=== PATIENT | female | born 1965 ===

== ENCOUNTER 2016-09-08 00:42 | Observation (INO) | payer BC ==
--- NOTE | 2016-09-08 01:13 | ED ---
General Adult HPI - General Chief complaint: Chest Pain Stated complaint: Chest Tightness Time Seen by Provider: 09/08/16 00:54 Source: patient, RN notes reviewed, old records reviewed Mode of arrival: wheelchair Limitations: no limitations - History of Present Illness Initial comments: This is a 51-year-old female here with chest pain. Patient is a strong family history of heart disease. No high blood pressure not cholesterol or diabetes remote smoking history. Patient currently with anterior chest pain heaviness and shortness of breath symptoms lasted for about 45 minutes. Patient does admit to increased stress in her life and also admits to increased episodes of chest pain. Again patient has strong family history. Patient currently without chest pain - Related Data Home Medications Medication Instructions Recorded Confirmed No Known Home Medications [No 09/08/16 09/08/16 Known Home Medications] Allergies Allergy/AdvReac Type Severity Reaction Status Date / Time No Known Allergies Allergy Verified 09/08/16 00:52 Review of Systems ROS Statement: Those systems with pertinent positive or pertinent negative responses have been documented in the HPI. ROS Other: All systems not noted in ROS Statement are negative. Past Medical History Past Medical History: No Reported History History of Any Multi-Drug Resistant Organisms: None Reported Additional Past Surgical History / Comment(s): exploratory laparotomy - removal of scar tissue, reconstruction of umbilicus. Past Psychological History: No Psychological Hx Reported Smoking Status: Never smoker Past Alcohol Use History: Occasional Past Drug Use History: None Reported General Exam Limitations: no limitations General appearance: alert, in no apparent distress, anxious Head exam: Present: atraumatic, normocephalic, normal inspection Eye exam: Present: normal appearance, PERRL, EOMI. Absent: scleral icterus, conjunctival injection, periorbital swelling ENT exam: Present: normal exam, mucous membranes moist Neck exam: Present: normal inspection. Absent: tenderness, meningismus, lymphadenopathy Respiratory exam: Present: normal lung sounds bilaterally. Absent: respiratory distress, wheezes, rales, rhonchi, stridor Cardiovascular Exam: Present: regular rate, normal rhythm, normal heart sounds. Absent: systolic murmur, diastolic murmur, rubs, gallop, clicks GI/Abdominal exam: Present: soft, normal bowel sounds. Absent: distended, tenderness, guarding, rebound, rigid Extremities exam: Present: normal inspection, full ROM, normal capillary refill. Absent: tenderness, pedal edema, joint swelling, calf tenderness Back exam: Present: normal inspection Neurological exam: Present: alert, oriented X3, CN II-XII intact Psychiatric exam: Present: normal affect, normal mood Skin exam: Present: warm, dry, intact, normal color. Absent: rash Course Vital Signs 09/08/16 09/08/16 09/08/16 00:48 02:05 03:07 Temperature 98.0 F 98.3 F Pulse Rate 88 84 86 Respiratory 18 16 16 Rate Blood Pressure 197/90 151/75 145/71 O2 Sat by Pulse 99 98 98 Oximetry - Reevaluation(s) Reevaluation #1: 09/08/16 03:21 Patient's pain at this time does remain improved EKG Findings - EKG Comments: EKG Findings:: EKG shows a sinus rhythm rate of 81, WV 136, QRS 84, QTC 434 Medical Decision Making - Medical Decision Making 51 female here for evaluation of chest pain, patient has strong family history of heart disease, typical chest pain including anterior having shortness of breath with diaphoresis. Patient be admitted for cardiac observation, patient initial EKG and troponin are negative, patient left serial troponins - Lab Data Result diagrams: 09/08/16 01:10 09/08/16 01:10 Lab Results 09/08/16 09/08/16 09/08/16 Range/Units 01:10 01:10 01:10 WBC 8.7 (3.8-10.6) k/uL RBC 4.83 (3.80-5.40) m/uL Hgb 14.7 (11.4-16.0) gm/dL Hct 42.7 (34.0-46.0) % MCV 88.5 (80.0-100.0) fL MCH 30.4 (25.0-35.0) pg MCHC 34.3 (31.0-37.0) g/dL RDW 12.5 (11.5-15.5) % Plt Count 215 (150-450) k/uL Neutrophils % 65 % Lymphocytes % 26 % Monocytes % 5 % Eosinophils % 2 % Basophils % 1 % Neutrophils # 5.7 (1.3-7.7) k/uL Lymphocytes # 2.3 (1.0-4.8) k/uL Monocytes # 0.4 (0-1.0) k/uL Eosinophils # 0.2 (0-0.7) k/uL Basophils # 0.1 (0-0.2) k/uL PT (9.0-12.0) sec INR (<1.1) APTT (22.0-30.0) sec D-Dimer (<0.60) mg/L FEU Sodium 142 (137-145) mmol/L Potassium 4.1 (3.5-5.1) mmol/L Chloride 104 (98-107) mmol/L Carbon Dioxide 24 (22-30) mmol/L Anion Gap 14 mmol/L BUN 18 H (7-17) mg/dL Creatinine 0.80 (0.52-1.04) mg/dL Est GFR (MDRD) Af Amer >60 (>60 ml/min/1.73 sqM) Est GFR (MDRD) Non-Af >60 (>60 ml/min/1.73 sqM) Glucose 127 H (74-99) mg/dL Calcium 9.5 (8.4-10.2) mg/dL Magnesium 2.0 (1.6-2.3) mg/dL Total Bilirubin 0.4 (0.2-1.3) mg/dL AST 33 (14-36) U/L ALT 42 (9-52) U/L Alkaline Phosphatase 73 (38-126) U/L Total Creatine Kinase 244 H (30-135) U/L CK-MB (CK-2) 2.1 (0.0-2.4) ng/mL CK-MB (CK-2) Rel Index 0.9 Troponin I <0.012 (0.000-0.034) ng/mL NT-Pro-B Natriuret Pep pg/mL Total Protein 7.5 (6.3-8.2) g/dL Albumin 4.7 (3.5-5.0) g/dL Lipase 119 (23-300) U/L 09/08/16 09/08/16 Range/Units 01:10 01:10 WBC (3.8-10.6) k/uL RBC (3.80-5.40) m/uL Hgb (11.4-16.0) gm/dL Hct (34.0-46.0) % MCV (80.0-100.0) fL MCH (25.0-35.0) pg MCHC (31.0-37.0) g/dL RDW (11.5-15.5) % Plt Count (150-450) k/uL Neutrophils % % Lymphocytes % % Monocytes % % Eosinophils % % Basophils % % Neutrophils # (1.3-7.7) k/uL Lymphocytes # (1.0-4.8) k/uL Monocytes # (0-1.0) k/uL Eosinophils # (0-0.7) k/uL Basophils # (0-0.2) k/uL PT 9.9 (9.0-12.0) sec INR 1.0 (<1.1) APTT 22.4 (22.0-30.0) sec D-Dimer <0.17 (<0.60) mg/L FEU Sodium (137-145) mmol/L Potassium (3.5-5.1) mmol/L Chloride (98-107) mmol/L Carbon Dioxide (22-30) mmol/L Anion Gap mmol/L BUN (7-17) mg/dL Creatinine (0.52-1.04) mg/dL Est GFR (MDRD) Af Amer (>60 ml/min/1.73 sqM) Est GFR (MDRD) Non-Af (>60 ml/min/1.73 sqM) Glucose (74-99) mg/dL Calcium (8.4-10.2) mg/dL Magnesium (1.6-2.3) mg/dL Total Bilirubin (0.2-1.3) mg/dL AST (14-36) U/L ALT (9-52) U/L Alkaline Phosphatase (38-126) U/L Total Creatine Kinase (30-135) U/L CK-MB (CK-2) (0.0-2.4) ng/mL CK-MB (CK-2) Rel Index Troponin I (0.000-0.034) ng/mL NT-Pro-B Natriuret Pep 43 pg/mL Total Protein (6.3-8.2) g/dL Albumin (3.5-5.0) g/dL Lipase (23-300) U/L - Radiology Data Radiology results: report reviewed (Chest x-ray two-view is negative for acute disease), image reviewed Critical Care Time Critical Care Time: Yes Total Critical Care Time: 31 Disposition Clinical Impression: Chest pain Disposition: ADMITTED IP TO THIS HOSP Condition: Undetermined Referrals: Gloria Lux MD [Primary Care Provider] - 1-2 days
[2016-09-08 01:42] LABS: Basophils # (A) 0.1 k/uL (0-0.2); Basophils % (A) 1 %; CH 30.8; CHCM 34.9; Eosinophils # (A) 0.2 k/uL (0-0.7); Eosinophils % (A) 2 %; HCT 42.7 % (34.0-46.0); HDW 2.45; HGB 14.7 gm/dL (11.4-16.0); Luc # (Auto) 0.15; Luc % (Auto) 2; Lymphocytes # (A) 2.3 k/uL (1.0-4.8); Lymphocytes % (A) 26 %; MCH 30.4 pg (25.0-35.0); MCHC 34.3 g/dL (31.0-37.0); MCV 88.5 fL (80.0-100.0); Mean Platelet Volume 7.5; Monocytes # (A) 0.4 k/uL (0-1.0); Monocytes % (A) 5 %; Neutrophils # (A) 5.7 k/uL (1.3-7.7); Neutrophils % (A) 65 %; RBC 4.83 m/uL (3.80-5.40); RDW 12.5 % (11.5-15.5); WBC 8.7 k/uL (3.8-10.6); WBC (Perox) 8.93
[2016-09-08 01:51] LABS: ALT 42 U/L (9-52); AST 33 U/L (14-36); Alkaline Phosphatase 73 U/L (38-126); Anion Gap 14 mmol/L; Blood Urea Nitrogen 18 mg/dL (7-17); Calcium 9.5 mg/dL (8.4-10.2); Carbon Dioxide 24 mmol/L (22-30); Chloride 104 mmol/L (98-107); Glucose 127 mg/dL (74-99); Non-African American GFR(MDRD) >60 (>60 ml/min/1.73 sqM); Potassium 4.1 mmol/L (3.5-5.1); Sodium 142 mmol/L (137-145); Total Bilirubin 0.4 mg/dL (0.2-1.3); Total Protein 7.5 g/dL (6.3-8.2)
[2016-09-08 02:03] LABS: Creatine Kinase 244 U/L (30-135)
[2016-09-08 02:16] LABS: Creatine Kinase MB 2.1 ng/mL (0.0-2.4); Troponin I <0.012 ng/mL (0.000-0.034)
[2016-09-08 02:24] LABS: Partial Thromboplastin Time 22.4 sec (22.0-30.0); Prothrombin Time 9.9 sec (9.0-12.0)
--- NOTE | 2016-09-08 02:43 | XR ---
EXAMINATION TYPE: XR chest 2V DATE OF EXAM: 09/08/2016 1:38 AM COMPARISON: None. HISTORY: Chest pain TECHNIQUE: Frontal and lateral views of the chest are obtained. FINDINGS: There is no focal air space opacity, pleural effusion, or pneumothorax seen. The cardiac silhouette size is within normal limits. The osseous structures are intact. IMPRESSION: No acute cardiopulmonary process.
[2016-09-08] MEDS ORDERED: NITROGLYCERIN SL TABS 0.4 MG TAB SUBLINGUAL PRN (03:19)
[2016-09-08] MEDS ORDERED: ASPIRIN 81 MG CHEW PO STA (03:19)
[2016-09-08] MEDS ORDERED: HEPARIN SODIUM,PORCINE 5,000 UNIT/ML 1 ML VIAL IV ONE (03:19)
[2016-09-08] MEDS ORDERED: HEPARIN SODIUM,PORCINE 5,000 UNIT/ML 1 ML VIAL IV PRN (03:19)
[2016-09-08] MEDS ORDERED: SODIUM CHLORIDE 0.9% 1,000 ML IV SCH (03:30)
[2016-09-08] MEDS ORDERED: HEPARIN SODIUM,PORCINE/D5W PMX 25,000 UNIT in DEXTROSE/WATER 1 500ML.BAG IV SCH (03:30)
[2016-09-08 05:57] VITALS: RESP 16
[2016-09-08] MEDS ORDERED: ATORVASTATIN 80 MG TAB PO SCH (09:00)
[2016-09-08 09:29] LABS: Creatine Kinase 176 U/L (30-135)
[2016-09-08 09:40] LABS: Creatine Kinase MB 1.5 ng/mL (0.0-2.4); Troponin I <0.012 ng/mL (0.000-0.034)
--- NOTE | 2016-09-08 10:20 | ECHOF ---
Referral Reason: MEASUREMENTS -------- HEIGHT: 154.9 cm WEIGHT: 74.8 kg BP: IVSd: 0.7 cm (0.6 - 1.1) LVIDd: 5.0 cm (3.9 - 5.3) LVPWd: 1.0 cm (0.6 - 1.1) IVSs: 1.7 cm LVIDs: 2.5 cm LVPWs: 1.7 cm Ao Diam: 2.6 cm (2.0 - 3.7) AV Cusp: 1.6 cm (1.5 - 2.6) LA Diam: 3.4 cm (2.7 - 3.8) MV EXCURSION: 13.666 mm (> 18.000) MV EF SLOPE: 98 mm/s (70 - 150) EPSS: 0.2 cm MV E Erlin: 0.90 m/s MV DecT: 224 ms MV A Erlin: 0.77 m/s MV E/A Ratio: 1.18 RAP: 5.00 mmHg RVSP: 15.40 mmHg FINDINGS -------- Sinus rhythm. This was a technically good study. Left ventricular wall thickness is normal. Overall left ventricular systolic function is normal with, an EF between 55 - 60 %. The right ventricle is normal in size and function. The left atrium is normal in size. The right atrium is normal in size. The aortic valve is trileaflet, and appears structurally normal. No aortic stenosis or regurgitation. The mitral valve leaflets are mildly thickened. Mild mitral regurgitation is present. Mild tricuspid regurgitation present. The right ventricular systolic pressure, as measured by Doppler, is 15.40mmHg. Pulmonic valve appears structurally normal. The aortic root size is normal. Normal inferior vena cava with normal inspiratory collapse consistent with estimated right atrial pressure of 5 mmHg. The pericardium is normal. CONCLUSIONS -------- 1. Sinus rhythm. 2. Mild mitral regurgitation is present. 3. Mild tricuspid regurgitation present. 4. The right ventricular systolic pressure, as measured by Doppler, is 15.40mmHg. 5. Pulmonic valve appears structurally normal. 6. The aortic root size is normal. 7. Normal inferior vena cava with normal inspiratory collapse consistent with estimated right atrial pressure of 5 mmHg. 8. The pericardium is normal. 9. This was a technically good study. 10. Left ventricular wall thickness is normal. 11. Overall left ventricular systolic function is normal with, an EF between 55 - 60 %. 12. The right ventricle is normal in size and function. 13. The left atrium is normal in size. 14. The right atrium is normal in size. 15. The aortic valve is trileaflet, and appears structurally normal. No aortic stenosis or regurgitation. 16. The mitral valve leaflets are mildly thickened. FOOD TESTER: Rossana Varner RDCS
--- NOTE | 2016-09-08 11:30 | P.CRDCN ---
History of Present Illness Consult date: 09/08/16 History of present illness: This is a 51-year-old female with a family history of ischemic heart disease but no history of hypertension diabetes or hypercholesterolemia who woke up last night with heaviness in the chest and also sharp pain on the left side. She was mildly short of breath and sweaty. The pain radiated to the back and also to the shoulder. Patient finally came to the emergency room. Apparently gradually improved on its own. Patient was given some oxygen and aspirin. Her EKGs did not reveal any acute changes. Her cardiac enzymes studies 2 are so far negative. She is having mild discomfort in the chest now. Appears to be atypical with negative workup so far. She is being scheduled for a stress echocardiogram. If that is negative patient could be discharged home. Review of Systems REVIEW OF SYSTEMS: CONSTITUTIONAL:. Patient is doing well. No complaints of fever or chills EYES: Denies diplopia, blurring of vision EARS, NOSE, MOUTH, THROAT: Denies headaches, denies sore throat. CARDIOVASCULAR: Denies chest pain, denies shortness of breath, denies palpitations RESPIRATORY: Denies shortness of breath, denies cough. GASTROINTESTINAL: Denies change in appetite, denies abdominal pain, denies diarrhea GENITOURINARY: Denies hematuria, denies infections. MUSKULOSKELETAL: Denies pain, denies swelling. Denies any cramps or claudication INTEGUMENTARY: Denies rash, denies eczema. NEUROLOGICAL: Denies focal weakness, or visual disturbance. Denies any dizziness or syncope PSYCHIATRIC: Denies anxiety, denies depression. HEMATOLOGIC/LYMPHATIC: Denies any bleeding, denies enlarged lymph nodes. Past Medical History Past Medical History: No Reported History History of Any Multi-Drug Resistant Organisms: None Reported Additional Past Surgical History / Comment(s): exploratory laparotomy - removal of scar tissue, reconstruction of umbilicus. Past Anesthesia/Blood Transfusion Reactions: No Reported Reaction Past Psychological History: No Psychological Hx Reported Additional Psychological History / Comment(s): Pt states she is under increased stress lately. Her [id number] recently and a couple of her friends have as well. She resides at home with her spouse, her mother and an adult son. She is independent. Smoking Status: Never smoker Past Alcohol Use History: Occasional Past Drug Use History: None Reported - Past Family History Father Family Medical History: Coronary Artery Disease (CAD), Diabetes Mellitus Additional Family Medical History / Comment(s): Father had a [place] at the age of 42yrs. He had CABG. He at the age of 64 yrs. Mother Family Medical History: AFIB Additional Family Medical History / Comment(s): Mother is 75yrs old. Medications and Allergies Home Medications Medication Instructions Recorded Confirmed Type Biotin 5 mg PO DAILY 09/08/16 09/08/16 History Cinnamon Bark [Cinnamon] 500 mg PO DAILY 09/08/16 09/08/16 History [place]-3 Fatty Acids/Fish Oil [Fish 1 cap PO DAILY 09/08/16 09/08/16 History Oil 1,000 mg Softgel] Allergies Allergy/AdvReac Type Severity Reaction Status Date / Time No Known Allergies Allergy Verified 09/08/16 07:31 Physical Exam Vitals: Vital Signs Temp Pulse Resp BP Pulse Ox 09/08/16 09:13 16 09/08/16 07:21 68 16 129/70 97 09/08/16 05:51 97.2 F L 87 16 136/81 97 09/08/16 04:05 98.3 F 73 18 133/79 98 Intake and Output 09/07/16 09/08/16 09/08/16 22:59 06:59 14:59 Other: # Voids 1 GENERAL EXAM: Patient is alert and oriented and doesn't appear to be in any acute distress HEENT: Normocephalic. Normal reaction of pupils, equal size, normal range of extraocular motion. No erythema or exudates in the throat. NECK: No masses, no nuchal rigidity. CHEST: No chest wall deformity. LUNGS: Equal air entry with no crackles or wheeze. HEART: S1 and S2 normal with no audible mumurs or gallops. Regular rhythm, femorals equal on both sides.. ABDOMEN: No hepatosplenomegaly, normal bowel sounds, no guarding or rigidity. SKIN: No rashes CENTRAL NERVOUS SYSTEM: No focal deficits. EXTREMITIES: No cyanosis, clubbing or edema. Results 09/08/16 01:10 09/08/16 01:10 Cardiac Enzymes 09/08/16 Range/Units 07:03 CK-MB (CK-2) 1.5 (0.0-2.4) ng/mL Troponin I <0.012 (0.000-0.034) ng/mL Coagulation 09/08/16 Range/Units 10:05 APTT 30.2 H (22.0-30.0) sec Current Medications Generic Name Dose Route Start Last Admin Trade Name Dianna PRN Reason Stop Dose Admin Aspirin 325 mg 09/09/16 09:00 Aspirin PO DAILY [facility] Atorvastatin Calcium 80 mg 09/08/16 09:00 Lipitor PO DAILY [facility] Heparin Sodium (Porcine) 0 unit 09/08/16 03:19 Heparin IV PER PROTOCOL PRN Low PTT Protocol Heparin Sodium/Dextrose 25,000 500 mls @ 17.96 mls/hr 09/08/16 03:30 04:04 unit/ IV Solution IV 12 units/kg/hr .Q24H DALE 17.96 mls/hr Protocol Administration 12 UNITS/KG/HR Sodium Chloride 1,000 mls @ 20 mls/hr 09/08/16 03:30 09/08/16 03:59 Saline 0.9% IV 20 mls/hr .Q24H DALE Administration Nitroglycerin 0.4 mg 09/08/16 03:19 Nitrostat SUBLINGUAL Q5M PRN Chest Pain Intake and Output 09/07/16 09/08/16 09/08/16 22:59 06:59 14:59 Other: # Voids 1 EKG Interpretations (text) Sinus rhythm without acute changes Assessment and Plan (1) Family history of ischemic heart disease Status: Acute (2) Chest pain Status: Acute Plan: Her pains appear to be atypical. Enzymes and EKGs are so far negative. Echo cardiogram showed good LV function without any segmental wall motion defects. Patient is being scheduled for a stress echocardiogram. If that is negative patient could be discharged home.
[2016-09-08 14:06] LABS: Creatine Kinase 143 U/L (30-135)
--- NOTE | 2016-09-08 14:14 | ECHOS ---
DATE OF SERVICE: 09/08/2016 AGE: 51Y SEX: F HT: 61" WT: 165 lbs. Protocol Shiva: Others: Stage: Dur. of Exercise: 9 minutes *Heart Rate Blood Pressure *Rest: 89 Rest: 143/70 * *Max. Achieved: 151 Maximum BP: 174/85 85% PMHR: 145 100% PMHR: 171 *METS: 9.9 INDICATIONS: Chest pain. MEDICATIONS: [place]-3, Cinnamon Bark, Bioth. Clinical information: 51-year-old female with chest pain, palpitations. Resting ECG shows sinus rhythm, rate of 89 beats per minute, ( ) 0.16, ( ), poor R wave progression in anteroseptal leads with ( ) limited treadmill test was performed. Patient exercised for total of 9 minutes, obtained a peak heart rate of 151 beats per minute which is approximately 88% predicted maximum heart rate without any chest pain, pressure or ST segment deviations indicative of ischemia or cardiac arrhythmias. Baseline EKG shows normal thickening and contractibility. Postexercise images show improved contractibility and thickening consistent with normal stress echocardiogram. Patient did not report any symptoms throughout the study. Patient has above average level of cardiopulmonary fitness as indicated by O2 ( ) and METs. Patient attained peak metabolic activity ( )to 10 METs.
[2016-09-08 14:20] LABS: Troponin I <0.012 ng/mL (0.000-0.034)
[2016-09-08 14:38] VITALS: BP 149/76; PULSE 85; TEMP 98.1
--- NOTE | 2016-09-08 19:32 | HP ---
DATE OF ADMISSION: 09/08/2016 CHIEF COMPLAINT: Chest pain. HISTORY OF PRESENT ILLNESS: Ms. Reich is a 51-year-old male with a known history of known family history of myocardial infarction in his father at age about 42. No history of hypertension, diabetes mellitus or hyperlipidemia, came to the hospital with complaints of chest tightness, mainly in the left retrosternal. Patient felt heaviness in the chest and also felt like pressure in the left side of the chest. Radiating to the back and to the shoulder. Patient came to the hospital ER and pain gradually improved after that. Patient was given oxygen and aspirin while in the ER and EKG showed no acute EKG changes. Cardiac enzymes have bene negative. Cardiology has seen the patient. Recommended stress echocardiogram, recommend stress test. The patient underwent stress test today. Otherwise, the patient currently chest pain free. No fever. No chills. No recent illnesses. No sick contacts at home. Apparently the patient had flulike symptoms lasted for a long time during June this year, since then patient did improve and currently no sick contacts at home. REVIEW OF SYSTEMS: CONSTITUTIONAL: No fever. No chills. No weakness or malaise. RESPIRATORY: No cough or sputum production. CARDIOVASCULAR: No chest pain or short of breath. ABDOMEN: No nausea, vomiting, abdominal pain. GENITOURINARY: Negative. ENDOCRINE: Negative. PSYCHIATRY: Negative. SKIN: Negative. All other 14 point review of systems negative except as above. Past medical history includes no hypertension or diabetes mellitus. PAST SURGICAL HISTORY: Exploratory laparotomy and removal of scar tissue, reconstruction of umbilicus. No psychosocial history. SOCIAL HISTORY: Patient never a smoker. Occasional alcohol use. Denied any drugs or IVDU. FAMILY HISTORY: Father had coronary artery disease and myocardial infarction at the age of 42. He had coronary artery bypass graft, he at age 64 years. Mother had afib. Home medication include: 1. Biotin. 2. Cinnamon bark. 3. [place]-3 fatty acids. ALLERGIES: No known drug allergies. PHYSICAL EXAMINATION: A 51 -year-old female lying in the bed. Alert and oriented times three. Appears to be in no apparent distress. VITALS: Blood pressure on admission 144/74, pulse 86, respirations 16, temperature afebrile, pulse ox 98% on room air. HEENT: Atraumatic, normocephalic. Neck is supple. No JVD. CVS: S1, S2 heard. No murmurs, no gallop. LUNGS: Bilateral air entry is present. No wheezing. No crackles. ABDOMEN: Soft, nontender, bowel sounds preset. FAMILY SUPPORT WORKER: Awake, alert, oriented x3. No focal neurologic deficits. Cranial nerves grossly intact. EXTREMITIES: No edema. Pulses palpable bilaterally. No clubbing or cyanosis. PSYCHIATRIC: Cooperative. LABORATORY DATA: WBC 8.7, hemoglobin 14.7, platelets 215 and INR 1.0. D-dimer 00.17 not elevated. Sodium 142, potassium 4.4, chloride 104, bicarb is 24. BUN 18, creatinine 0.8, CPK level 244, troponin x3 is negative. Lipase is 109. CHEST X-RAY: No acute cardiopulmonary process and EKG on admission showed normal sinus rhythm. IMPRESSION: 1. Atypical chest pain/angina. Rule out acute coronary syndrome. Serial EKGs and troponins negative so far. Continue the telemetry monitoring. Cardiology recommend stress echocardiogram. 2. A strong family history of coronary artery disease in her father, coronary artery disease, myocardial infarction at the age of 42 years. 3. A brother had a heart problems as well. DISCUSSION AND PLAN: 51 -year-old female admitted to the hospital with chest pain with strong family history. The patient admitted to the hospital to rule out acute coronary syndrome. Continue the telemetry monitoring. Cardiology recommend stress echocardiogram. Will follow up report and Further recommendations based on clinical course.
[2016-09-09] MEDS ORDERED: ASPIRIN 325 MG TAB PO SCH (09:00)
--- NOTE | 2016-09-09 18:44 | DS ---
DATE OF ADMISSION: 09/08/2016 DATE OF DISCHARGE: 09/08/2016 Cardiology consultation ( ) stress echocardiogram. DISCHARGE DIAGNOSES: 1. Atypical chest pain/angina, ruled out acute coronary syndrome. Stress echo negative. 2. Strong family history of coronary artery disease with myocardial infarction in her mother at age 42. 3. Brother had heart disease as well. HOSPITAL COURSE: Ms. Reich is a 51-year-old female without significant past medical history came to the hospital with a complaint of chest pressure, left side retrosternal. Presents like an AV sensation and patient was monitored in the hospital. Serial EKGs and troponins are negative. CK showed a normal sinus rhythm. Patient was seen by Cardiology and recommended a stress echocardiogram. Stress echo showed normal thickening and contractility. Post x-ray images showed improved contractility and thickening consistent with normal stress echocardiogram. The patient is currently chest pain free and pain lasted for 3 minutes. The patient otherwise stable to be discharge home. DISCHARGE PHYSICAL EXAMINATION: A 51-year-old female lying in the bed comfortably, awake, alert and oriented x3, appears in no apparent distress. VITALS: Blood pressure is 129/70. Pulse 68, respirations 16, temperature afebrile, pulse ox 97% on room air. LABORATORY DATA: Reviewed. Discharge physical examination done. Discharge medications include: 1. Biotin 5 mg p.o. daily. 2. Cinnamon bark 500 mg p.o. daily. 3. [place]-3 fatty acids 1 capsule p.o. daily. Patient will be discharged in stable condition. Activity as tolerated. Heart healthy diet. Follow with Dr. Gloria Lux. Home with self care.
== END 2016-09-08 17:30 | disposition home or self-care (01) ==
LOC: EC 00:42 → 3OBS 03:21
PROVIDERS: ADMIT Hospitalist; ATTEND Hospitalist
DX: I20.9 Angina pectoris, unspecified (principal); Z63.9 Problem related to primary support group, unspecified; Z82.49 Family history of ischemic heart disease and other diseases of the circulatory system; Z83.3 Family history of diabetes mellitus
CPT/HCPCS: 99291; 96365; 96366 ×7; 96376; 36415; 93005; 93017; 93306; 93350; 85379; 83880; 80053; 82550; 82553; 83690; 83735; 84484; 85025; 85610; 85730; 71020; G0378; J1644 ×2

== ENCOUNTER → 2017-09-01 | Outpatient (CLI) | payer BC ==
--- NOTE | 2017-09-03 10:49 | MM ---
Reason for exam: screening (asymptomatic). Last mammogram was performed 1 year and 2 months ago. History: Family history of breast cancer in sister at age 50. Cancelled Right Mammotome of the right breast, February 28, 2010. Took hormonal contraceptives for 2 years beginning at age 17. Physical Findings: A clinical breast exam by your physician is recommended on an annual basis and results should be correlated with mammographic findings. MG Screening Mammo w CAD Bilateral CC and MLO view(s) were taken. Prior study comparison: June 17, 2016, bilateral MG screening mammo w CAD. June 19, 2015, right breast MG 3d work up w/cad RT. The breast tissue is heterogeneously dense. This may lower the sensitivity of mammography. No significant changes when compared with prior studies. ASSESSMENT: Benign, BI-RAD 2 RECOMMENDATION: Routine screening mammogram of both breasts in 1 year.
== END | disposition home or self-care (01) ==
LOC: RADMAMWWP 09:28
PROVIDERS: ATTEND Internal Medicine
DX: Z12.31 Encounter for screening mammogram for malignant neoplasm of breast (principal)

== ENCOUNTER → 2018-10-10 | Outpatient (CLI) | payer BC ==
--- NOTE | 2018-10-12 12:02 | MM ---
Reason for exam: screening (asymptomatic). Last mammogram was performed 1 year and 1 month ago. History: Family history of breast cancer in sister at age 50. Cancelled Right Mammotome of the right breast, February 28, 2010. Took hormonal contraceptives for 2 years beginning at age 17. Physical Findings: A clinical breast exam by your physician is recommended on an annual basis and results should be correlated with mammographic findings. MG 3D Screening Mammo W/Cad Bilateral CC and MLO view(s) were taken. Prior study comparison: September 01, 2017, bilateral MG screening mammo w CAD. June 17, 2016, bilateral MG screening mammo w CAD. The breast tissue is extremely dense which could obscure a lesion on mammography. No significant changes when compared with prior studies. ASSESSMENT: Benign, BI-RAD 2 RECOMMENDATION: Routine screening mammogram of both breasts in 1 year.
== END ==
LOC: RADMAMWWP 13:46
PROVIDERS: ATTEND Internal Medicine
DX: Z12.31 Encounter for screening mammogram for malignant neoplasm of breast (principal)
CPT/HCPCS: 77063; 77067

== ENCOUNTER → 2020-10-11 | Outpatient (CLI) | payer BC ==
--- NOTE | 2020-10-11 09:40 | US ---
EXAMINATION TYPE: US abdomen complete DATE OF EXAM: 10/11/2020 COMPARISON: US 2015 CLINICAL HISTORY: R74.8 ABN ALT AND AST. EXAM MEASUREMENTS: Liver Length: 14.3 cm Gallbladder Wall: 0.3 cm CBD: 0.4 cm Spleen: 11.9 cm Right Kidney: 10.8 x 4.2 x 4.8 cm Left Kidney: 12.3 x 4.8 x 5.3 cm Pancreas: visualized portions wnl Liver: wnl Gallbladder: No stones seen Evidence for sonographic Sy's sign: No CBD: wnl Spleen: wnl Right Kidney: No hydronephrosis or masses seen Left Kidney: No hydronephrosis or masses seen Upper IVC: wnl Abd Aorta: wnl The liver is homogenous. The intrahepatic portion of the IVC and proximal abdominal aorta are within normal limits. There is no evidence of cholelithiasis. Common bile duct is unremarkable. The visu alized portions of the pancreas are homogenous. The spleen is unremarkable. Kidneys are symmetric a nd free of hydronephrosis. No renal lesions are seen. IMPRESSION: No distinct abnormality seen.
== END | disposition home or self-care (01) ==
LOC: RADUSWWP 08:46
PROVIDERS: ATTEND Internal Medicine
DX: R74.01 Elevation of levels of liver transaminase levels (principal)
CPT/HCPCS: 76700

== ENCOUNTER → 2020-10-16 | Outpatient (CLI) | payer BC ==
--- NOTE | 2020-10-18 11:26 | MM ---
Reason for exam: screening (asymptomatic). Last mammogram was performed 2 years ago. History: Patient is postmenopausal. Family history of breast cancer in sister at age 50. Cancelled Right Mammotome of the right breast, February 28, 2010. Took hormonal contraceptives for 2 years beginning at age 17. Physical Findings: A clinical breast exam by your physician is recommended on an annual basis and results should be correlated with mammographic findings. MG 3D Screening Mammo W/Cad Bilateral CC and MLO view(s) were taken. Prior study comparison: October 10, 2018, bilateral MG 3d screening mammo w/cad. September 01, 2017, bilateral MG screening mammo w CAD. The breast tissue is heterogeneously dense. This may lower the sensitivity of mammography. No significant changes when compared with prior studies. ASSESSMENT: Benign, BI-RAD 2 RECOMMENDATION: Routine screening mammogram of both breasts in 1 year.
== END | disposition home or self-care (01) ==
LOC: RADMAMWWP 13:30
PROVIDERS: ATTEND Internal Medicine
DX: Z12.31 Encounter for screening mammogram for malignant neoplasm of breast (principal)
CPT/HCPCS: 77063; 77067

== ENCOUNTER → 2021-11-27 | Outpatient (CLI) | payer BC ==
--- NOTE | 2021-11-28 12:43 | MM ---
Reason for exam: screening (asymptomatic). Last mammogram was performed 1 year and 1 month ago. History: Patient is postmenopausal. Family history of breast cancer in sister at age 50. Cancelled Right Mammotome of the right breast, February 28, 2010. Took hormonal contraceptives for 2 years beginning at age 17. Physical Findings: A clinical breast exam by your physician is recommended on an annual basis and results should be correlated with mammographic findings. MG 3D Screening Mammo W/Cad Bilateral CC and MLO view(s) were taken. XCCL view(s) were taken of the right breast. Prior study comparison: October 16, 2020, bilateral MG 3d screening mammo w/cad. October 10, 2018, bilateral MG 3d screening mammo w/cad. The breast tissue is extremely dense which could obscure a lesion on mammography. Finding: There is a 6 mm oval mass in the inner quadrant, middle position of the right breast. Asymmetric breast tissue in the right axilla, stable. There is no discrete abnormality. ASSESSMENT: Incomplete: need additional imaging evaluation, BI-RAD 0 RECOMMENDATION: Special view mammogram of the right breast. If lesion persists on supplemental views, image directed ultrasound is recommended. [facility] will attempt to contact patient to return for supplemental views and ultrasound if indicated.
== END | disposition home or self-care (01) ==
LOC: RADMAMWWP 09:14
PROVIDERS: ATTEND Internal Medicine
DX: Z12.31 Encounter for screening mammogram for malignant neoplasm of breast (principal); Z78.0 Asymptomatic menopausal state; Z80.3 Family history of malignant neoplasm of breast
CPT/HCPCS: 77063; 77067

== ENCOUNTER → 2022-08-06 | Outpatient (CLI) | payer BC ==
--- NOTE | 2022-08-06 13:40 | MM ---
Reason for Exam: Follow-up at short interval from prior study. Last screening mammogram was performed 9 month(s) ago. Patient History: Menarche at age 15. First Full-Term at age 23. Postmenopausal. Patient has history of breast feeding. Hormonal Contraceptives for 2 years from age 17 until age 19. 02/28/2010, Cancelled Right Mammotome on the right side. Sister had breast cancer, age 50. Risk Values: Diamond 5 year model risk: 2.3%. NCI Lifetime model risk: 15.1%. Prior Study Comparison: 09/01/2010 Right Diagnostic Ultrasound, [facility]. 03/24/2011 Bilateral Diagnostic Mammogram, [facility]. 04/04/2012 Bilateral Diagnostic Mammogram, [facility]. 04/27/2013 Bilateral Screening Mammogram, [facility]. 05/28/2014 Bilateral Screening Mammogram, [facility]. 06/05/2015 Bilateral Screening Mammogram, [facility]. 06/19/2015 Right Diagnostic Mammogram, [facility]. 06/17/2016 Bilateral Screening Mammogram, [facility]. 09/01/2017 Bilateral Screening Mammogram, [facility]. 10/10/2018 Bilateral Screening Mammogram, [facility]. 10/16/2020 Bilateral Screening Mammogram, [facility]. 11/27/2021 Bilateral Screening Mammogram, [facility]. 12/11/2021 Right Diagnostic Mammogram, [facility]. Tissue Density: Right: The breast tissue is heterogeneously dense. This may lower the sensitivity of mammography. Findings: Analyzed By CAD. The previous medial area of asymmetric density does not persist. A couple benign punctate calcifications medial right breast are redemonstrated. No significant change from prior exams. Overall Assessment: Benign, BI-RAD 2 Management: Screening Mammogram of both breasts in 6 months. 1. Patient should continue monthly self breast exams. 2. A clinical breast exam by your physician is recommended on an annual basis. 3. This exam should not preclude additional follow-up of suspicious palpable abnormalities. Results were given to the patient verbally at the time of exam. Electronically signed and approved by: Kendrick Minaya M.D. Radiologist
== END | disposition home or self-care (01) ==
LOC: RADMAMWWP 12:50
PROVIDERS: ATTEND Internal Medicine
DX: R92.8 Other abnormal and inconclusive findings on diagnostic imaging of breast (principal); Z78.0 Asymptomatic menopausal state; Z80.3 Family history of malignant neoplasm of breast
CPT/HCPCS: 77061; 77065

== ENCOUNTER → 2023-02-05 | Outpatient (CLI) | payer BC ==
--- NOTE | 2023-02-08 10:11 | MM ---
Reason for Exam: Screening (asymptomatic). Last mammogram was performed 1 year(s) and 3 month(s) ago. Patient History: Menarche at age 15. First Full-Term at age 23. Postmenopausal. Patient has history of breast feeding. Hormonal Contraceptives for 2 years from age 17 until age 19. 02/28/2010, Cancelled Right Mammotome on the right side. Sister had breast cancer, age 50. Risk Values: Diamond 5 year model risk: 2.3%. NCI Lifetime model risk: 15.1%. Prior Study Comparison: 11/27/2021 Bilateral Screening Mammogram, [facility]. 12/11/2021 Right Diagnostic Mammogram, [facility]. 08/06/2022 Right MG 3D diag mammo w/cad RT, [facility]. Tissue Density: The breast tissue is heterogeneously dense. This may lower the sensitivity of mammography. Findings: Analyzed By CAD. Benign-appearing bilateral axillary lymph nodes are redemonstrated. There is no suspicious new group of microcalcifications or new suspicious mass in either breast. Overall Assessment: Benign, BI-RAD 2 Management: Screening Mammogram of both breasts in 1 year. . Patient should continue monthly self-breast exams. A clinical breast exam by your physician is recommended on an annual basis. This exam should not preclude additional follow-up of suspicious palpable abnormalities. Note on Diamond scores and lifetime risk: 1. A Diamond score greater than 3% is considered moderate risk. If this is the case, consider specialist referral to assess eligibility for a risk reducing agent. 2. If overall lifetime risk for the development of breast cancer is 20% or higher, the patient may qualify for future screening with alternating mammogram and breast MRI. Electronically signed and approved by: Anil Felix M.D.
== END | disposition home or self-care (01) ==
LOC: RADMAMWWP 09:41
PROVIDERS: ATTEND Internal Medicine
DX: Z12.31 Encounter for screening mammogram for malignant neoplasm of breast (principal); Z78.0 Asymptomatic menopausal state; Z80.3 Family history of malignant neoplasm of breast
CPT/HCPCS: 77063; 77067

== ENCOUNTER → 2024-02-22 | Outpatient (CLI) | payer BC ==
--- NOTE | 2024-02-25 10:53 | MM ---
Reason for Exam: Screening (asymptomatic). Last screening mammogram was performed 12 month(s) ago. Patient History: Menarche at age 15. First Full-Term at age 23. Postmenopausal. Patient has history of breast feeding. Hormonal Contraceptives for 2 years from age 17 until age 19. 02/28/2010, Cancelled Right Mammotome on the right side. Sister had breast cancer, age 50. Risk Values: Diamond 5 year model risk: 2.4%. NCI Lifetime model risk: 14.8%. Prior Study Comparison: 10/10/2018 Bilateral Screening Mammogram, [facility]. 10/16/2020 Bilateral Screening Mammogram, [facility]. 11/27/2021 Bilateral Screening Mammogram, [facility]. 12/11/2021 Right Diagnostic Mammogram, [facility]. 08/06/2022 Right MG 3D diag mammo w/cad RT, [facility]. 02/05/2023 Bilateral MG 3D screening mammo w/cad, [facility]. Tissue Density: The breasts are heterogeneously dense, which may obscure small masses. Analyzed By CAD. Overall Assessment: Negative, BI-RAD 1 Management: Screening Mammogram of both breasts in 1 year. Electronically signed and approved by: Yoan Fermin DO
== END | disposition home or self-care (01) ==
LOC: RADMAMWWP 13:40
PROVIDERS: ATTEND Internal Medicine
DX: Z12.31 Encounter for screening mammogram for malignant neoplasm of breast (principal); Z78.0 Asymptomatic menopausal state; Z80.3 Family history of malignant neoplasm of breast
CPT/HCPCS: 77063; 77067